=== PATIENT | male | born 1990 | race Caucasian/White ===

== ENCOUNTER 2016-12-02 21:40 | Emergency (ER) | payer OTHER ==
[~2016-12-02] VITALS: Ht 172.7 cm; Wt 81.7 kg
[~2016-12-02 21:40] MED LIST: MEDROL DOSEPAK4 MG PO; VENTOLIN HFA18 GM IH; ZITHROMAX Z-PA250 MG PO
[2016-12-02] MEDS ORDERED: ZOFRAN4 MG PO (21:50)
[2016-12-02 22:45] VITALS: BP 116/80
== END 2016-12-03 07:45 | disposition home or self-care (01) ==
LOC: EME 21:40
DX: R11.2 Nausea with vomiting, unspecified (principal); R19.7 Diarrhea, unspecified
CPT/HCPCS: 80053; 85027; 99281; 99283